=== PATIENT | female | born 1995 | race Hispanic/Latino ===

== ENCOUNTER → 2022-09-09 16:25 | Outpatient (CLI) | payer MEDICAID, SELFPAY ==
[2022-09-12 11:52] LABS: Candida species Positive (Negative); Gardnerella vaginalis Positive (Negative); Trichomoas vaginalis Negative (Negative)
== END ==
PROVIDERS: PCP Family Medicine; Visit Provider Obstetrics & Gynecology
DX: Z34.81 Encounter for supervision of other normal pregnancy, first trimester (principal)
CPT/HCPCS: 87480; 87510; 87660

== ENCOUNTER → 2022-10-06 14:38 | Outpatient (CLI) | payer MEDICAID, SELFPAY ==
[2022-10-06 15:11] LABS: Add Manual Diff / Slide Review NO; Basophils Absolute Auto 100 /uL (0-100); Basophils Percent Auto 0.4 % (0-2); Eosinophils Absolute Auto 0 /uL (0-450); Eosinophils Percent Auto 0.2 % (2-4); Hematocrit 33.2 % (36-46); Hemoglobin 11.5 g/dL (12.0-16.0); Lymphocytes Absolute Auto 2700 /uL (1100-4500); Lymphocytes Percent Auto 20.2 % (25-40); Mean Corpuscular HGB Conc 34.7 % (30-36); Mean Corpuscular Hemoglobin 29.8 PG (26-34); Mean Corpuscular Volume 85.8 fL (80-100); Monocytes Absolute Auto 900 /uL (0-900); Monocytes Percent Auto 6.7 % (3-14); Neutrophils Absolute Auto 9800 /uL (1500-7000); Neutrophils Percent Auto 72.5 % (50-75); Platelet Count 373 X10^3/uL (150-400); Red Blood Cell Count 3.87 X10^6/uL (4.0-5.2); Red Cell Distribution Width 12.9 % (11.6-14.8); White Blood Cell Count 13.5 X10^3/uL (4.5-11.0)
[2022-10-07 05:49] LABS: RPR Screen Non Reactive (Non Reactive)
[2022-10-07 08:36] LABS: Varicella IgG Antibody <135 index (Immune >165)
[2022-10-08 18:42] LABS: AFP, Serum 26.9 ng/mL (.); Estriol, Free 0.92 ng/mL (.); Inhibin A, Dimeric 254.44 pg/mL (.); Inhibin A, MoM 1.57 (.); Maternal Ethnicity Other (.); Maternal Weight 152 lbs (.); Number of Fetuses No (.); OSBR Risk 1 IN 10000 (.); Results Report (.); Test Results *Screen Negative* (.); hCG, MoM 0.91 (.); hCG, Serum 47311 mIU/mL (.)
[2022-10-10 17:32] LABS: Hepatitis B Surface Antigen NEGATIVE s/c (NEGATIVE); Rubella Antibody IgG 51.2 IU/mL (>15)
[2022-10-10 17:48] LABS: HIV 1 & 2 Ab/Ag 4th Gen Combo NEGATIVE (NEGATIVE); Hep C Virus Ab w/Reflex Quant NEGATIVE s/c (NEGATIVE)
== END ==
PROVIDERS: PCP Family Medicine; Referring Provider Obstetrics & Gynecology; Visit Provider Obstetrics & Gynecology
DX: Z34.82 Encounter for supervision of other normal pregnancy, second trimester (principal); Z3A.15 15 weeks gestation of pregnancy
CPT/HCPCS: 80055; 82105; 82677; 84702; 86336; 86787; 86803; 86850; 86900; 86901; 87086; 87389

== ENCOUNTER → 2022-11-10 09:52 | Outpatient (CLI) | payer MEDICAID, SELFPAY ==
--- NOTE | 2022-11-10 09:53 | DI.US.S_ITS ---
PROCEDURE: US OB >= 14 WEEKS FETUS INDICATIONS: Anatomy scan OUTSIDE/PRIOR DATING DATA: Last menstrual period (LMP): 06/20/2022. LMP-based estimated date of delivery (ARY): 03/27/2023. First dating scan (date and location): Not available. Estimated date of delivery (ARY) from first dating scan: 03/27/2023. TECHNIQUE: Real-time scanning was performed of the fetus, with image documentation and biometric measurements. COMPARISON: None. FINDINGS: General: A single living intrauterine gestation is present. Presentation: Breech. Placenta: Placental position is anterior , without previa. Amniotic fluid index: 14.1 cm, normal range is 5-24 cm. Single deepest vertical pocket is 5.8 cm. heart rate: 158 beats per minute. Maternal cervical canal: 3.1 cm long. Normal lower limit is 2.5 cm. biometrics: Biparietal diameter: 19 weeks 4 days Head circumference: 19 weeks 6 days Abdominal circumference: 20 weeks 6 days Femur length: 20 weeks 5 days Clinically estimated gestational age: 20 weeks 3 days Composite gestational age from present scan: 20 weeks 2 days Estimated weight and percentile: 370 g; 60% for gestation age Anatomic survey: Neuro: Ventricles are non-dilated at less than 10 mm. Cisterna magna is normal at 3-11 mm. Cerebellum is normal in size and morphology. Nuchal skin fold: Normal at less than 6 mm between 14-21 weeks gestational age. Face: Nose and lips, facial profile are normal. Spine: No evidence for spina bifida. Heart: 4-chambered heart is present, with normal ventricular outflow tracts. Diaphragm: Diaphragm is intact. Stomach: Left-sided stomach is present. Kidneys: No hydronephrosis. Normal is less than 5 mm in 2nd trimester, less than 7 mm in 3rd trimester. Cord: 3-vessel cord has orthotopic insertion. Bladder: Normal in size. Extremities: All 4 extremities identified. IMPRESSION: 1. A single living intrauterine gestation with appropriate interval growth. 2. Normal anatomic survey. We strive to produce accurate, complete, and clear reports of imaging services. To assist us in improving patient care, this report was composed using standard report templates and voice recognition software. Therefore, it may contain abnormal punctuation, insertions and/or omissions. Occasional wrong-word or sound-alike substitutions may occur. Though we review the report and make efforts to correct it, we do recommend that the report be read carefully in proper context to recognize any text inaccuracies. Dictated by: Jennifer Johnson M.D. on 11/10/2022 at 15:42 Approved by: Jennifer Johnson M.D. on 11/10/2022 at 15:45
== END ==
PROVIDERS: PCP Family Medicine; Referring Provider Obstetrics & Gynecology; Visit Provider Obstetrics & Gynecology
DX: Z34.92 Encounter for supervision of normal pregnancy, unspecified, second trimester (principal); Z3A.20 20 weeks gestation of pregnancy
CPT/HCPCS: 76811

== ENCOUNTER → 2022-12-07 12:30 | Outpatient (CLI) | payer MEDICAID, SELFPAY ==
[2022-12-07 17:03] LABS: GTT (PREG) 1 Hour PP 50gm Dose 126 mg/dL (76-139)
== END ==
PROVIDERS: PCP Family Medicine; Referring Provider Specialist; Visit Provider Specialist
DX: O34.219 Maternal care for unspecified type scar from previous cesarean delivery (principal); Z3A.24 24 weeks gestation of pregnancy
CPT/HCPCS: 36415; 82950

== ENCOUNTER 2023-02-11 19:13 | Outpatient (CLI) | payer MEDICAID, SELFPAY ==
--- NOTE | 2023-02-11 20:12 | P.TNLD_ITS ---
Visit Information Visit Information Date of evaluation: 02/11/23 On-call OB Provider: Maryuri Allan Reason for Evaluation: Yes pre-term labor Comments/Additional reasons for admission: Loss of mucous plug with lower abdominal pain at 33 weeks 5 days Vital Signs Vital Signs: Blood pressure 96/54, pulse 103, temperature 37.1? [facility] Medical History (Updated 02/01/23 @ 09:40 by Maryuri Allan MD) Migraine without aura delivery Surgical History (Updated 10/17/22 @ 20:32 by Tanja Kitchen MD) Previous section Family History (Updated 09/06/22 @ 08:46 by Johanna Arango RN) Grandmother Diabetes mellitus Hypertension Social History marital status: unmarried,living together number of children: 3 (one stepchild) household members: significant other lives independently: Yes caregiver/support person: Yes housing: house (mobile home) pets and animals: No education level: other (4th grade) occupational status: unemployed current occupational exposures/hazards: No special flori needs: No travel history: over 6 months ago seatbelt use: always water heater temp set < 120 deg: Yes working smoke detector in home: Yes fire extinguisher in home: Yes carbon monox detector in home: Yes firearms in home: No do you feel safe at home: Yes (answered by s/o) Smoking Status: Former smoker (vaped, quit when she learned of ) Tobacco: How many years used: 1 second hand exposure: No alcohol intake: former (8-10/week prior to ) substance use type: does not use during the past year weight has: increased > 10 lbs well-balanced diet: daily or most days daily servings fruits/ve or more times/day caffeine: Yes (AM cup coffee; has stopped soft drinks) Type(s) of exercise: walking Review of Systems Review of Systems Narrative: Patient mucus discharge, low abdominal discomfort, no vaginal bleeding, good movement. Evaluation Evaluation Baseline heart rate: 130 Variability: Moderate (11-25) monitor accelerations: Present Monitor Decelerations: Absent Contraction Frequency (minutes): 0 Category of Tracing: Reactive Status: Category l Cervical dilation (cm): 0 Cervical effacement (%): 50 station: -4 Diagnosis, Plan/Disposition Plan/Disposition Plan: 33 weeks 5 days to make sure she was not having premature cervical dilation. No contractions on the monitor cervix closed. Patient reassured. Precautions reviewed OB Disposition: home
== END 2023-02-11 20:12 | disposition home or self-care (01) ==
LOC: OB 02-15 06:16
PROVIDERS: PCP Family Medicine; Referring Provider Specialist; Visit Provider Specialist
DX: O26.893 Other specified pregnancy related conditions, third trimester (principal); R10.30 Lower abdominal pain, unspecified; Z3A.33 33 weeks gestation of pregnancy
CPT/HCPCS: 59025; G0378; G0379

== ENCOUNTER 2023-03-01 18:34 | Observation (INO) | payer MEDICAID, SELFPAY ==
[2023-03-01] MEDS: LACTATED RINGERS 1,000 ML 1000 ML IV (19:30)
[2023-03-01 20:04] LABS: Appearance Urine UA CLEAR; Bilirubin Urine UA NEGATIVE (NEGATIVE); Color Urine UA YELLOW; Glucose Urine UA NEGATIVE (Negative); Ketones Urine UA TRACE (NEGATIVE); Leukocyte Esterase Urine UA NEGATIVE (NEGATIVE); Nitrite Urine UA NEGATIVE (Negative); Occult Blood Urine UA NEGATIVE (Negative); Protein Urine UA NEGATIVE (Negative); Specific Gravity Urine UA <=1.005 (1.000-1.035); Urobilinogen Urine UA 0.2 E.U./dL (0.2)
[2023-03-01 20:25] LABS: Bacteria Urine None Seen; Culture Indicated Urine Cult Not Indicated; RBC Urine None Seen (0-5/HPF); Squamous Epithelial Cell Urine 0-1 /HPF (0-5/HPF); WBC Urine 0-1/HPF (0-5/HPF); pH Urine UA 5.5 (4.5-8.0)
[2023-03-01 21:18] LABS: Strep Grp B PCR NEG for Grp B Strep
--- NOTE | 2023-03-01 21:46 | P.TNLD_ITS ---
Visit Information Visit Information Date of evaluation: 03/01/23 On-call OB Provider: Marleni Bach Reason for Evaluation: Yes pre-term labor Comments/Additional reasons for admission: 28yo at 36+2wks presented to triage for painful ctx starting today. She endorses low back pain mostly. Denies leaking fluid or vaginal bleeding. Vital Signs Vital Signs: within normal parameters (see OBIX) [facility] Medical History (Updated 03/02/23 @ 07:59 by Marleni Bach DO) delivery Migraine without aura Surgical History (Updated 10/17/22 @ 20:32 by Tanja Kitchen MD) Previous section Family History (Updated 09/06/22 @ 08:46 by Johanna Arango RN) Grandmother Diabetes mellitus Hypertension Social History marital status: unmarried,living together number of children: 3 (one stepchild) household members: significant other lives independently: Yes caregiver/support person: Yes housing: house (mobile home) pets and animals: No education level: other (4th grade) occupational status: unemployed current occupational exposures/hazards: No special flori needs: No travel history: over 6 months ago seatbelt use: always water heater temp set < 120 deg: Yes working smoke detector in home: Yes fire extinguisher in home: Yes carbon monox detector in home: Yes firearms in home: No do you feel safe at home: Yes (answered by s/o) Smoking Status: Former smoker (vaped, quit when she learned of ) Tobacco: How many years used: 1 second hand exposure: No alcohol intake: former (8-10/week prior to ) substance use type: does not use during the past year weight has: increased > 10 lbs well-balanced diet: daily or most days daily servings fruits/ve or more times/day caffeine: Yes (AM cup coffee; has stopped soft drinks) Type(s) of exercise: walking Review of Systems Review of Systems ROS: Yes All systems reviewed with the patient and are negative except as otherwise documented Exam Const General: cooperative, healthy appearing and No acute distress GI Inspection: normal to inspection Other: gravid, nontender External Female Exam: normal external appearance Skin General: no rashes or lesions noted Objective Labs 03/01/23 23:00 Labs: Laboratory Results - last 24 hr 03/01/23 03/01/23 19:45 19:57 Urine Color Yellow Urine Appearance Clear Urine pH 5.5 Ur Specific Maxbass <=1.005 Urine Protein Negative Urine Glucose (UA) Negative Urine Ketones Trace H Urine Occult Blood Negative Urine Nitrate Negative Urine Bilirubin Negative Urine Urobilinogen 0.2 Ur Leukocyte Esterase Negative Urine RBC None seen Urine WBC 0-1/hpf Ur Squamous Epith Cells 0-1 /hpf Urine Bacteria None seen Ur Culture Indicated? Cult not indicated Group B Strep (PCR) Neg for grp b strep Evaluation Evaluation Baseline heart rate: 150 Variability: Moderate (11-25) monitor accelerations: Present Monitor Decelerations: Absent Contraction Frequency (minutes): 3 Status: Category l Cervical dilation (cm): 0 Cervical effacement (%): 60 station: -3 Comments: SVE 03/01 upon arrival (per nursing): closed/60/-3 SVE 03/01 at 11pm (per nursing): closed/60/-3 SVE 03/02 at 7:45am (my exam): 07/16/-3 Diagnosis, Plan/Disposition Final Diagnosis (1) labor in third trimester: Status: Acute Problem details: 28yo at 36+3wks here for r/o PTL. Made cervical change overnight (however 2 different examiners). -will administer BMTZ #1 -repeat SVE in 2-3hrs; if still making change, would proceed with today (2) 36 weeks gestation of : Status: Acute Problem details: -GBS PCR negative
[2023-03-01] MEDS: NIFEdipine 10 MG CAPSULE PO (22:36)
[2023-03-02 01:33] LABS: Add Manual Diff / Slide Review NO; Basophils Absolute Auto 100 /uL (0-100); Basophils Percent Auto 0.7 % (0-2); Eosinophils Absolute Auto 0 /uL (0-450); Eosinophils Percent Auto 0.3 % (2-4); Hematocrit 34.6 % (36-46); Hemoglobin 11.7 g/dL (12.0-16.0); Lymphocytes Absolute Auto 3000 /uL (1100-4500); Lymphocytes Percent Auto 25.5 % (25-40); Mean Corpuscular Hemoglobin 28.5 PG (26-34); Mean Corpuscular Volume 83.9 fL (80-100); Monocytes Absolute Auto 700 /uL (0-900); Monocytes Percent Auto 5.9 % (3-14); Neutrophils Absolute Auto 8000 /uL (1500-7000); Neutrophils Percent Auto 67.6 % (50-75); Platelet Count 311 X10^3/uL (150-400); Red Blood Cell Count 4.12 X10^6/uL (4.0-5.2); Red Cell Distribution Width 14.5 % (11.6-14.8); White Blood Cell Count 11.8 X10^3/uL (4.5-11.0)
[2023-03-02] MEDS: NIFEdipine 10 MG CAPSULE PO (03:06)
[2023-03-02] MEDS: BETAMETHASONE 30 MG/5 ML MDV 12 MG IM (07:59)
== END 2023-03-02 10:37 | disposition home or self-care (01) ==
PROVIDERS: Admitting Provider Student in an Organized Health Care Education/Training Program; PCP Family Medicine; Referring Provider Student in an Organized Health Care Education/Training Program; Visit Provider Student in an Organized Health Care Education/Training Program
DX: O60.03 Preterm labor without delivery, third trimester (principal); Z3A.36 36 weeks gestation of pregnancy
CPT/HCPCS: 59025; 59050; 76815; 81001; 85025; 86850; 86900; 86901; 87081; 87653; 96360; 96372; G0378; G0379; J0702

== ENCOUNTER 2023-03-03 10:55 | Outpatient (CLI) | payer MEDICAID, SELFPAY ==
[2023-03-03] MEDS: BETAMETHASONE 30 MG/5 ML MDV 12 MG IM (11:29)
--- NOTE | 2023-04-20 10:03 | PM.OBTRLD ---
Visit Information Visit Information Date of evaluation: 03/03/23 Reason for Evaluation: Yes non-stress test [facility] Medical History (Updated 03/10/23 @ 13:13 by Marleni Bach DO) delivery Migraine without aura Surgical History (Updated 10/17/22 @ 20:32 by Tanja Kitchen MD) Previous section Family History (Updated 09/06/22 @ 08:46 by Johanna Arango RN) Grandmother Diabetes mellitus Hypertension Social History marital status: unmarried,living together number of children: 3 (one stepchild) household members: significant other lives independently: Yes caregiver/support person: Yes housing: house (mobile home) pets and animals: No education level: other (4th grade) occupational status: unemployed current occupational exposures/hazards: No special flori needs: No travel history: over 6 months ago seatbelt use: always water heater temp set < 120 deg: Yes working smoke detector in home: Yes fire extinguisher in home: Yes carbon monox detector in home: Yes firearms in home: No do you feel safe at home: Yes (answered by s/o) Smoking Status: Never smoker Tobacco: How many years used: 1 second hand exposure: No alcohol intake: former (8-10/week prior to ) substance use type: does not use during the past year weight has: increased > 10 lbs well-balanced diet: daily or most days daily servings fruits/ve or more times/day caffeine: Yes (AM cup coffee; has stopped soft drinks) Type(s) of exercise: walking Evaluation Evaluation Baseline heart rate: 140 Variability: Moderate (11-25) monitor accelerations: Present Monitor Decelerations: Absent Category of Tracing: Reactive Diagnosis, Plan/Disposition Plan/Disposition Plan: Pt given BMTZ #2 for labor. Reactive NST obtained in the center. -f/u in clinic as scheduled OB Disposition: home
== END 2023-03-03 11:35 | disposition home or self-care (01) ==
LOC: LABOR 11:10 → OB 03-07 12:08
PROVIDERS: PCP Family Medicine; Referring Provider Student in an Organized Health Care Education/Training Program; Visit Provider Student in an Organized Health Care Education/Training Program
DX: O60.03 Preterm labor without delivery, third trimester (principal); Z3A.36 36 weeks gestation of pregnancy
CPT/HCPCS: 59025; 96372; G0378; G0379; J0702

== ENCOUNTER 2023-03-07 18:45 | Outpatient (CLI) | payer MEDICAID, SELFPAY ==
--- NOTE | 2023-03-07 19:50 | P.TNLD_ITS ---
Visit Information Visit Information Date of evaluation: 03/07/23 Primary OB Provider: Marleni Bach On-call OB Provider: Misael Monson Reason for Evaluation: Yes rule out labor Comments/Additional reasons for admission: Jami is a 28 yo scheduled for a repeat CS 06/20 presenting now at 37+1 with contractions throughout today. BOWI. No discharge change. Baby active. [facility] Medical History (Updated 03/03/23 @ 12:45 by Marleni Bach DO) delivery Migraine without aura Surgical History (Updated 10/17/22 @ 20:32 by Tanja Kitchen MD) Previous section Family History (Updated 09/06/22 @ 08:46 by Johanna Arango RN) Grandmother Diabetes mellitus Hypertension Social History marital status: unmarried,living together number of children: 3 (one stepchild) household members: significant other lives independently: Yes caregiver/support person: Yes housing: house (mobile home) pets and animals: No education level: other (4th grade) occupational status: unemployed current occupational exposures/hazards: No special flori needs: No travel history: over 6 months ago seatbelt use: always water heater temp set < 120 deg: Yes working smoke detector in home: Yes fire extinguisher in home: Yes carbon monox detector in home: Yes firearms in home: No do you feel safe at home: Yes (answered by s/o) Smoking Status: Former smoker (vaped, quit when she learned of ) Tobacco: How many years used: 1 second hand exposure: No alcohol intake: former (8-10/week prior to ) substance use type: does not use during the past year weight has: increased > 10 lbs well-balanced diet: daily or most days daily servings fruits/ve or more times/day caffeine: Yes (AM cup coffee; has stopped soft drinks) Type(s) of exercise: walking Review of Systems Review of Systems Narrative: Problem-specific ROS positives included in HPI Evaluation Evaluation Baseline heart rate: 120 Variability: Moderate (11-25) monitor accelerations: Present Monitor Decelerations: Absent Contraction Frequency (minutes): 8 Uterine Contraction Intensity: Mild Category of Tracing: Reactive Status: Category l Cervical dilation (cm): 1 Cervical effacement (%): 60 station: -3 Comments: Cervical exam unchanged from prior exam Diagnosis, Plan/Disposition Plan/Disposition Plan: PO Nifedipine ER 30 mg now and daily to suppress uterine irritability until 03/19 Home to [place], pelvic rest OB Disposition: home
[2023-03-07] MEDS: NIFEdipine 30 MG TAB ER PO (20:14)
== END 2023-03-07 20:20 | disposition home or self-care (01) ==
LOC: LABOR 20:12 → OB 03-24 11:04
PROVIDERS: PCP Family Medicine; Referring Provider Student in an Organized Health Care Education/Training Program; Visit Provider Student in an Organized Health Care Education/Training Program
DX: O47.1 False labor at or after 37 completed weeks of gestation (principal); Z3A.37 37 weeks gestation of pregnancy
CPT/HCPCS: 59025; G0378; G0379

== ENCOUNTER 2023-03-15 14:25 | Observation (INO) | payer MEDICAID, SELFPAY ==
--- NOTE | 2023-03-15 15:09 | DI.US.S_ITS ---
PROCEDURE: US OB BIOPHYSICAL PROFILE INDICATIONS: FAILED NON STRESS TEST OUTSIDE/PRIOR DATING DATA: Last menstrual period (LMP): 05/26/2022. LMP-based estimated date of delivery (ARY): 03/02/2023. First dating scan (date and location): Unknown. Estimated date of delivery (ARY) from first dating scan: 03/27/2023. The calculations are made using the ultrasound ARY of 03/27/2023. TECHNIQUE: Real-time scanning was performed of the fetus for biophysical profile, with image documentation. Endovaginal scanning: Not performed COMPARISON: None. FINDINGS: General: A single living intrauterine gestation is present. Presentation: Vertex. Placenta: Placental position is anterior , without previa. Amniotic fluid index: 15.1 cm, normal range is 5-24 cm. Single deepest vertical pocket is 4.6 cm. heart rate: 141 beats per minute. Maternal cervical canal: Not well visualized. Estimated gestational age from initial scan: 38 weeks 2 days. Biophysical profile: Tone: 2 points. Movement: 2 points. Respiration: 2 points. Largest pocket of fluid: 2 points. IMPRESSION: A single living intrauterine at 38 weeks 2 days, ARY of 05/27/2022. BPP 8 of 8. We strive to produce accurate, complete, and clear reports of imaging services. To assist us in improving patient care, this report was composed using standard report templates and voice recognition software. Therefore, it may contain abnormal punctuation, insertions and/or omissions. Occasional wrong-word or sound-alike substitutions may occur. Though we review the report and make efforts to correct it, we do recommend that the report be read carefully in proper context to recognize any text inaccuracies. Dictated by: Tra Duggan M.D. on 03/15/2023 at 16:58 Approved by: Tra Duggan M.D. on 03/15/2023 at 17:00
== END 2023-03-15 16:40 | disposition home or self-care (01) ==
PROVIDERS: Admitting Provider Student in an Organized Health Care Education/Training Program; PCP Family Medicine; Referring Provider Student in an Organized Health Care Education/Training Program; Visit Provider Student in an Organized Health Care Education/Training Program
DX: O26.853 Spotting complicating pregnancy, third trimester (principal); O26.893 Other specified pregnancy related conditions, third trimester; R10.30 Lower abdominal pain, unspecified; Z3A.38 38 weeks gestation of pregnancy
CPT/HCPCS: 59025; 76819; G0378; G0379

== ENCOUNTER 2023-03-20 05:32 | Inpatient (IN) | payer MEDICAID, SELFPAY ==
--- NOTE | 2023-03-20 | PATH_ITS ---
[facility] Accession Number: [id number] No. of containers..01 Tissue . 01 Material submitted: . fallopian tube - FALLOPIAN TUBES . 01 Diagnosis: A. Bilateral Fallopian Tubes, Bilateral Salpingectomy: Cross sections of fallopian tubes with focally decidualized stroma consistent with progesterone effect/therapy. No evidence of dysplasia or malignancy. MRV 03/24/2023 1704 Local . 01 Electronically signed: . Catarina Crisostomo MD, Pathologist NPI- [id number] . 01 Gross description: . The specimen is received in formalin labeled with the patient's name, , and bilateral fallopian tubes, consist of two unoriented, fimbriated fallopian tubes measuring 6.4 x 1.0 cm and 6.0 x 0.9 cm, respectively. Both tubes have violaceous, smooth serosa with no cystic structures identified, and sectioning reveals unremarkable stellate lumens. Functional Mental Disability Teacher sections to include one-half of bisected fimbriae and cross sections are submitted as follows: A1: Longer fallopian tube. A2: Walton fallopian tube. ([id number]) /MRV 03/21/2023 1355 Local . 01 Pathologist provided ICD-10: Z30.2 . 01 CPT . 468336 Specimen Comment: A courtesy copy of this report has been sent to [facility] Performed at: 01 [facility] [address] [place] [address] [address], [place], [place] [id number] MD Deshawn Horne MD Phone: [phone]
[2023-03-20 06:27] LABS: Add Manual Diff / Slide Review NO; Basophils Absolute Auto 100 /uL (0-100); Basophils Percent Auto 0.6 % (0-2); Eosinophils Absolute Auto 0 /uL (0-450); Eosinophils Percent Auto 0.3 % (2-4); Hematocrit 33.9 % (36-46); Hemoglobin 11.5 g/dL (12.0-16.0); Lymphocytes Absolute Auto 2800 /uL (1100-4500); Lymphocytes Percent Auto 31.5 % (25-40); Mean Corpuscular HGB Conc 33.9 % (30-36); Mean Corpuscular Hemoglobin 27.9 PG (26-34); Mean Corpuscular Volume 82.5 fL (80-100); Monocytes Absolute Auto 500 /uL (0-900); Monocytes Percent Auto 5.9 % (3-14); Neutrophils Absolute Auto 5600 /uL (1500-7000); Neutrophils Percent Auto 61.7 % (50-75); Platelet Count 273 X10^3/uL (150-400); Red Blood Cell Count 4.11 X10^6/uL (4.0-5.2); Red Cell Distribution Width 14.5 % (11.6-14.8)
[2023-03-20 06:31] VITALS: BP 101/70
--- NOTE | 2023-03-20 07:33 | PM.OBHP.1 ---
OB HPI Date/Time Date of admission: 03/20/23 Date Patient Seen: 03/20/23 Time Patient Seen: 07:34 History of Present Condition Chief complaint: Section Narrative: 28yo at 39+0wks here for planned repeat with bilateral salingectomy. Pt reports feeling well, off and on contractions. Denies leaking fluid or vaginal bleeding, reports + movement. Indications Operative indications ( section): previous uterine surgery History of Present care: good care Dating criteria: LMP confirmed by 1st trimester US Narrative: Specific Issues/Plans Italian speaking only, s/o speaks reasonably fluent Bahraini PTL/PTD via C/S w/ gastroschisis 2nd delivery in [facility], Unsure of scar on uterus--> repeat c/s with bilateral salpingectomy scheduled for 03/20/23 (consent signed with Dr. Bach 03/10) Desires sterilization--> consent signed 02/01/23 Quad screen negative Hussain Bustillo Varicella NI--> vaccinate Preadmission Labs Blood type: O (+) positive -: Antibody screen: negative, Cystic fibrosis screen: negative, GBS status: negative, HBsAG: negative, HIV: negative, HSV 1: negative, HSV 2: negative and RPR/VDLR: negative -: Chlamydia screen: not detected and Gonorrhea screen: not detected -: Rubella: immune and Varicella: not immune HCT: 33.9 HCAB: negative PAP: Normal Quad screen: Normal 1 hr GTT: 126 Evaluation Evaluation Baseline heart rate: 140 Variability: Moderate (11-25) monitor accelerations: Present Monitor Decelerations: Absent Contraction Frequency (minutes): 9 Category of Tracing: Reactive PFSH Medical History (Updated 03/10/23 @ 13:13 by Marleni Bach DO) delivery Migraine without aura Surgical History (Updated 10/17/22 @ 20:32 by Tanja Kitchen MD) Previous section Family History (Updated 09/06/22 @ 08:46 by Johanna Arango RN) Grandmother Diabetes mellitus Hypertension Social History marital status: unmarried,living together number of children: 3 (one stepchild) household members: significant other lives independently: Yes caregiver/support person: Yes housing: house (mobile home) pets and animals: No education level: other (4th grade) occupational status: unemployed current occupational exposures/hazards: No special flori needs: No travel history: over 6 months ago seatbelt use: always water heater temp set < 120 deg: Yes working smoke detector in home: Yes fire extinguisher in home: Yes carbon monox detector in home: Yes firearms in home: No do you feel safe at home: Yes (answered by s/o) Smoking Status: Never smoker Tobacco: How many years used: 1 second hand exposure: No alcohol intake: former (8-10/week prior to ) substance use type: does not use during the past year weight has: increased > 10 lbs well-balanced diet: daily or most days daily servings fruits/ve or more times/day caffeine: Yes (AM cup coffee; has stopped soft drinks) Type(s) of exercise: walking Meds Home Medications and Allergies Home Medications Medication Instructions Recorded Confirmed Type omeprazole 20 mg tablet,delayed 20 mg PO DAILY PRN 09/06/22 03/10/23 History release prenat.vits,mackenzie,shw-pkbq-gmjip 1 tab PO DAILY 09/06/22 03/10/23 History psyllium husk 3.4 gram/5.4 gram 1 tbsp PO DAILY PRN 09/06/22 03/10/23 History oral powder (Metamucil) fluconazole 150 mg tablet 150 mg PO ONCE #1 tab 09/28/22 03/10/23 Rx (Diflucan) vitamins no.119-iron 1 tab PO DAILY #90 tabs 02/01/23 03/10/23 Rx fumarate 29 mg-folic acid 1 mg tablet Allergies Allergy/AdvReac Type Severity Reaction Status Date / Time No Known Drug Allergies Allergy Unverified 03/10/23 10:19 Review of Systems Review of Systems ROS: Yes All systems reviewed with the patient and are negative except as otherwise documented OB Exam Vital signs Blood Pressure: 110/68 Pulse Rate: 90 HENMT Head: normal to inspection Resp Effort & Inspection: normal respiratory effort and able to speak in complete sentences Cardio Rate: regular rate Rhythm: regular rhythm Extremities Lower extremity: Yes normal to inspection GI Other: gravid, nontender, nondistended Estimated Weight (lbs): 7 Objective Labs 03/20/23 06:00 Labs: Laboratory Results - last 24 hr 03/20/23 06:00 WBC 9.0 RBC 4.11 Hgb 11.5 L Hct 33.9 L MCV 82.5 MCH 27.9 MCHC 33.9 RDW 14.5 Plt Count 273 Neut % (Auto) 61.7 Lymph % (Auto) 31.5 Glasscock % (Auto) 5.9 Eos % (Auto) 0.3 L Baso % (Auto) 0.6 Neut # (Auto) 5600 Lymph # (Auto) 2800 Glasscock # (Auto) 500 Eos # (Auto) 0 Baso # (Auto) 100 Blood Type O Positive Antibody Screen Negative Assessment and Plan Assessment and Plan Assessment and Plan narrative: 28yo at 39+0wks here for planned repeat with bilateral salpingectomy. -CBC, T&S on admission -NST on admission -neuraxial anesthesia -GBS neg -2g Ancef for ppx -PPH risk low -VTE risk low, SCDs -move to OR for delivery once all teams ready consent It was explained to the patient that a section is a surgery to deliver the baby through an incision in the abdominal wall and uterus.? All procedures can be associated with risk and unforeseen complications, which can be immediate or delayed.? Risks and complications of section include, but are not limited to:? infection of the uterus, pelvic organs, or skin; inadvertent injury to internal organs such as the bowel, bladder, or possibly even the baby; blood loss, transfusion, and/or life-threatening hemorrhage requiring hysterectomy; blood clots in the legs, pelvic organs, or lungs; adverse reaction to medications or anesthesia during surgery; development of placenta accreta spectrum in a subsequent ; and increased risk of section in a subsequent . Time Spent with Patient Total time spent with greater than 50% in coordination of care (as documented) at patient's floor/unit and/or counseling patient:: 15-24 minutes
[2023-03-20 07:43] VITALS: BP 110/68; PULSE 90
--- NOTE | 2023-03-20 08:34 | SUR.OPER ---
Supine on padded OR bed, head on pillow, arms secured on padded arm boards at <90 degrees abduction, legs uncrossed, safety belt at thigh, tape over blanket over lower legs.
[2023-03-20] MEDS: CEFAZOLIN 2 GM/100 ML PREMIX 100 ML IV (08:41)
[2023-03-20 09:27] VITALS: BP 144/94; PULSE 92; RESP 7; TEMP 36.2; O2SAT 100
[2023-03-20 09:34] VITALS: BP 117/79; PULSE 83; RESP 25; O2SAT 99
--- NOTE | 2023-03-20 09:35 | PM.OBCS.1 ---
Operative Date/Time/Diagnoses Date of procedure: 03/20/23 Time of procedure: 09:36 Pre-op diagnosis: 1. [place]eda intrauterine gestation at 39+0 weeks 2. History of prior delivery 3. Undesired future fertility Post-op diagnosis: same Procedure & Clinicians Procedure: Repeat low transverse section Bilateral salpingectomy Same procedure as scheduled: Yes Indications: History of prior Surgeon: Marleni Bach Surgical Territory Manager: Tanja Kitchen Anesthesia Type: Spinal Operative Notes Findings: Normal-appearing uterus and bilateral fallopian tubes and ovaries. Clear fluid noted with AROM. Delivery productive of a viable female in vertex presentation with APGARS 8/9 and weighing 3025g. Closure Type: primary Specimen(s): cord blood and tubes/segments of tubes Intraoperative meds administered: Duramorph Applied: Catheter Estimated Blood Loss (mL): 400 (quantitative blood loss) Blood products transfused: none Procedure in detail: The risks, benefits, indications and alternatives of the procedure were reviewed with the patient and informed consent was obtained. The patient was taken to the operating room where spinal anesthesia was obtained without difficulty and was found to be adequate. She was then prepped and draped in the normal, sterile fashion in the dorsal supine position with a leftward tilt. A Pfannenstiel skin incision was then made with the scalpel and carried through to the underlying layer of fascia. The fascia was incised in the midline and the incision extended laterally with the Vang scissors. The inferior aspect of the fascial incision was grasped with Bernard clamps, elevated, and the underlying rectus muscles were dissected off bluntly, aided with Vang scissors. Attention was then turned to the superior aspect of the incision, which, in a similar fashion, was grasped, tented up with Bernard clamps and the rectus muscles were dissected off bluntly, aided with Vang scissors. The rectus muscles were then at the midline. The peritoneum was identified, and entered sharply. The peritoneal incision was then extended horizontally, superiorly and inferiorly, with good visualization of the bladder. The Rangel retractor was then inserted. The lower uterine segment was incised in a transverse fashion with the scalpel. The uterine incision was then extended manually in a cephalad/caudad direction. The amniotic sac was artificially ruptured, productive of clear fluid. The ?s head delivered atraumatically through the hysterotomy without difficulty, followed by the body.? The cord was doubly clamped and cut after a 60sec delay with the handed off to the waiting pediatrics team. The placenta was then removed spontaneously with gentle traction on the umbilical cord. The uterus was then left in-situ and cleared of all clots and debris. The uterine incision was repaired with 0-vicryl in a running, locked fashion. Two figure of eight sutures were applied to the hysterotomy with excellent hemostasis achieved. The left fallopian tube was then grasped with a Rachid clamp and elevated. A Ligasure was used to remove the left fallopian tube. The same procedure was completed on the right side. The paracolic gutters were cleared of all clot and debris. The Rangel retractor was then removed. The fascia was reapproximated with 0-vicryl in a running fashion. The subcutaneous layer was closed with 3-0 vicryl in simple, interrupted sutures. The skin was closed with 4-0 monocryl in a subcuticular fashion. The incision was then dressed with steri-strips and a pressure dressing was applied. At the completion of the case, a Crede maneuver was performed with good uterine tone and minimal vaginal bleeding noted.? The patient tolerated the procedure well. Sponge, lap and needle counts were correct x3. The patient was taken to the recovery room in stable condition. Complications: none Post-operative Condition: stable Disposition: PACU Aftercare: routine postop
[2023-03-20 09:38] VITALS: BP 115/67; PULSE 83; RESP 17; O2SAT 98
[2023-03-20 09:42] VITALS: BP 126/77; PULSE 82; RESP 17; O2SAT 100
--- NOTE | 2023-03-20 09:52 | SUR.PHASEI ---
Bonny L&D RN at bedside during recovery. Report given. Patient transferred to L&D with RN.
[2023-03-20] MEDS: KETOROLAC 30 MG/ML VIAL IV ×3 (10:36→23:08)
[2023-03-20] MEDS: LACTATED RINGERS 1,000 ML 42 ML IV (10:37)
[2023-03-20] MEDS: ACETAMINOPHEN 325 MG TABLET 650 MG PO ×2 (14:22→20:42)
[2023-03-20] MEDS: OXYCODONE IR 5 MG TABLET PO (20:42)
[2023-03-20] MEDS: LANOLIN OINT 7 GM 1 APPLIC TOP (20:44)
[2023-03-21] MEDS: KETOROLAC 30 MG/ML VIAL IV (05:14)
[2023-03-21 05:40] LABS: Add Manual Diff / Slide Review NO; Basophils Absolute Auto 100 /uL (0-100); Basophils Percent Auto 0.6 % (0-2); Eosinophils Absolute Auto 0 /uL (0-450); Eosinophils Percent Auto 0.1 % (2-4); Hematocrit 27.9 % (36-46); Hemoglobin 9.4 g/dL (12.0-16.0); Lymphocytes Absolute Auto 3000 /uL (1100-4500); Mean Corpuscular HGB Conc 33.7 % (30-36); Mean Corpuscular Volume 83.3 fL (80-100); Monocytes Absolute Auto 900 /uL (0-900); Monocytes Percent Auto 7.2 % (3-14); Neutrophils Absolute Auto 8500 /uL (1500-7000); Neutrophils Percent Auto 68.1 % (50-75); Platelet Count 243 X10^3/uL (150-400); Red Blood Cell Count 3.35 X10^6/uL (4.0-5.2); Red Cell Distribution Width 14.7 % (11.6-14.8); White Blood Cell Count 12.4 X10^3/uL (4.5-11.0)
[2023-03-21] MEDS: OXYCODONE IR 5 MG TABLET PO ×2 (07:00→14:52)
[2023-03-21] MEDS: FERROUS SULFATE 325 MG TABLET PO (10:30)
[2023-03-21] MEDS: ACETAMINOPHEN 325 MG TABLET 650 MG PO ×2 (10:51→16:36)
[2023-03-21] MEDS: PRENATAL VIT,CALC/IRON/FOLIC 1 TABLET 1 TAB PO (10:51)
[2023-03-21] MEDS: DOCUSATE 100 MG CAPSULE PO (10:51)
--- NOTE | 2023-03-21 11:00 | PM.OBDS.1 ---
Discharge Providers Provider Date of admission: 03/20/23 05:32 Discharge Date: 03/21/23 Primary care physician: Nate Soriano MD Consults: 03/20/23 09:54 Consult to Brush Holder Assembler Routine Comment: Discharge provider: Marleni Bach DO Summary Hospital Course Date Patient Seen: 03/21/23 Time Patient Seen: 11:00 Diagnoses: Term gestation at 39+0wks Delivered via repeat section Sterilization procedure completed (bilateral salpingectomy) Hospital Course: 28yo [id number] admitted for planned repeat with bilateral salpingectomy for sterilization. Her procedure was uncomplicated. By post-op day #1, she was ambulating, tolerating regular diet, voiding spontaneously, with minimal lochia. Her pain is well controlled with oral pain meds. well. Thus she was discharged home on post-op day #1. Peripartum Data Infant Delivery Method: Section Procedures: External monitoring delivery Bilateral salpingectomy complications: none Status at Discharge Cognitive/behavioral status at discharge: oriented Functional status at discharge: independent ambulation Overall status at discharge: patient is progressing back to baseline Time Spent with Patient Time attestation: Total time spent providing and/or coordinating discharge services: Time spent: Greater than 30 minutes Objective Labs 03/21/23 05:22 Labs: Laboratory Results - last 24 hr 03/21/23 05:22 WBC 12.4 H RBC 3.35 L Hgb 9.4 L Hct 27.9 L MCV 83.3 MCH 28.0 MCHC 33.7 RDW 14.7 Plt Count 243 Neut % (Auto) 68.1 Lymph % (Auto) 24.0 L [place] % (Auto) 7.2 Eos % (Auto) 0.1 L Baso % (Auto) 0.6 Neut # (Auto) 8500 H Lymph # (Auto) 3000 [place] # (Auto) 900 Eos # (Auto) 0 Baso # (Auto) 100 Exam Vital Signs (past 8 hours): Oxygen Delivery Method Room Air Const General: cooperative, healthy appearing, comfortable and No acute distress Resp Effort & Inspection: normal respiratory effort GI Inspection: normal to inspection Other: fundus firm and nontender at U-2 Skin General: no rashes or lesions noted Neuro General: patient alert and patient awake Extrem General: normal to inspection, no pedal edema and no calf tenderness Psych Mood: congruent mood Affect: normal affect Discharge Plan Discharge Plan Patient Disposition: Home Provider Discharge Comment: Continue ibuprofen 600mg every 6hrs, with tylenol 650mg every 6hrs. Use oxycodone 5mg every 4hrs as needed for pain. Continue taking vitamin while . Continue iron supplement daily for the next 3 months. Discharge orders & Medications Prescriptions: New oxycodone 5 mg Tablet 5 mg PO Q4H PRN (Reason: Pain, Moderate (4-6)) Qty: 10 0RF Continued Metamucil 3.4 gram/5.4 gram powder 1 tbsp PO DAILY PRN Rx Instructions: mix into at least 8 oz of water or juice before administering PNV 119-iron fum-folic acid 29 mg iron- 1 mg tablet 1 tab PO DAILY Qty: 90 2RF Discontinued fluconazole [Diflucan] 150 mg tablet 150 mg PO ONCE Qty: 1 0RF Rx Instructions: Take one tablet by mouth now. prenat.vits,mackenzie,[id number] Tablet 1 tab PO DAILY omeprazole 20 mg tablet,delayed release (DR/EC) 20 mg PO DAILY PRN Follow up/Referrals: Nate Soriano MD [Primary Care Provider] - Marleni Bach DO [Physician] - 2 Weeks Activity Restrictions/Additional Instructions: No lifting over 20lbs for 6 weeks. Nothing in the vagina for 6 weeks. Diet/Activity/Treatments Diet: Diet as Tolerated Activity: Ambulate daily. Gradually resume normal activities as tolerated. Skin/Wound/Dressing Care Report to your healthcare provider any signs of infection, such as:: chills, fever, increased pain, unusual drainage and unusual redness Dressing: Remove steri-strips from incision after 7 days. Shower normally. Visit Report/Discharge Packet Instructions: DI for Stand Alone Forms: Patient Portal/API, Stroke Signs & Symptoms Discharge Data Primary Care Provider: Nate Soriano
[2023-03-21] MEDS: IBUPROFEN 600 MG TABLET PO ×2 (12:13→17:44)
--- NOTE | 2023-04-03 06:28 | PC.NURSE ---
late entry- on 03/21/23 at 0306, I gave 5mg oxycodone PO to the patient and the medication didn't get scanned.
== END 2023-03-21 18:00 | disposition home or self-care (01) | DRG 784 ==
PROVIDERS: Admitting Provider Student in an Organized Health Care Education/Training Program; PCP Family Medicine; Referring Provider Student in an Organized Health Care Education/Training Program; Visit Provider Student in an Organized Health Care Education/Training Program
PROC: 10D00Z1 Extraction of Products of Conception, Low, Open Approach (ICD-10-PCS; CPT 59514; principal; 2023-03-20 07:45)
DX: O34.211 Maternal care for low transverse scar from previous cesarean delivery (principal); D62 Acute posthemorrhagic anemia; O90.81 Anemia of the puerperium; Z3A.39 39 weeks gestation of pregnancy; Z37.0 Single live birth
CPT/HCPCS: 36415; 58611; 59050; 59514; 85025; 86850; 86900; 86901; J0690; J1100; J1885; J2274; J2405